=== PATIENT | male | born 1985 | race Caucasian/White ===

== ENCOUNTER 2021-06-02 12:58 | Emergency (ER) | payer BC, SELFPAY ==
--- NOTE | ~2021-06-02 | CT_ITS ---
EXAMINATION: CT abdomen pelvis wo con DATE: 06/02/2021 13:47 INDICATION: Left flank pain. TECHNIQUE: Computed tomography (CT) of the abdomen and pelvis was performed without intravenous contr ast. Automated exposure control and iterative reconstruction technique were employed. The dose-length product was 310.57 mGy-cm. COMPARISON: CT abdomen and pelvis 01/30/2017 FINDINGS: The visualized portions of the lung bases demonstrate mild atelectasis. No pleural effusion . The heart size is normal. No pericardial effusion. There is diffuse hepatic steatosis. The gallblad donita, spleen, pancreas, and adrenal glands are normal. There is a 1 mm stone in right kidney. There is a 1 mm stone in left kidney. There are no dilated loops of bowel. The appendix is normal. There are no pathologically enlarged lymph nodes. There is no free intraperitoneal fluid. There is a benign bon [place] in proximal left femur. There is severe lumbar spondylosis. IMPRESSION: 1. Small bilateral nonobstructing kidney stones. 2. Diffuse hepatic steatosis. Reviewed, dictated and finalized at location [facility]. [employer]
[2021-06-02 13:00] VITALS: BP 140/80; PULSE 74; RESP 16; TEMP 36.6; O2SAT 98
--- NOTE | 2021-06-02 13:23 | PC.NURSE ---
Pt off floor to CT scan
[2021-06-02 13:30] LABS: Add Urine Microscopic? YES; Appearance Urine Clear (Clear); Bilirubin Urine Negative (Negative); Blood Urine Negative (Negative); Color Urine Yellow (Yellow); Glucose Urine UA Negative (Negative); Ketones Urine Negative (Negative); Leukocyte Esterase Ur Negative LEU/UL (Negative); Mucus Urine Rare /lpf; Nitrate Urine Negative (Negative); Protein Urine Negative (Negative); RBC Urine 0-2 /hpf (0-2); Urobilinogen Urine Negative mg/dL (<2.0); WBC Urine 0-3 /hpf
[2021-06-02] MEDS: SODIUM CHLORIDE 0.9% IV 1,000 ML 999 ML IV CONT (13:39)
[2021-06-02] MEDS: TAMSULOSIN HCL 0.4 MG CAPSULE PO (13:40)
[2021-06-02 13:46] LABS: Basophils Percent Auto 0.4 % (0.2-1.2); Eosinophils Absolute Auto 0.1 K/mm3 (0-0.3); Eosinophils Percent Auto 1.8 % (0-4.4); Hematocrit 43.6 % (42.0-52.0); Hemoglobin 14.6 g/dL (14.0-18.0); Immature Granulocyte Absolute 0.01 K/mm3 (0.00-0.031); Immature Granulocyte Percent A 0.1 % (0-0.5); Lymphocytes Absolute Auto 2.92 K/mm3 (0.9-3.2); Lymphocytes Percent Auto 38.4 % (18.3-44.2); Mean Corpuscular HGB Conc 33.5 g/dl (32-36); Mean Corpuscular Hemoglobin 29.3 pg (26-34); Mean Corpuscular Volume 87.6 fl (80-100); Monocytes Absolute Auto 0.7 K/mm3 (0.1-0.6); Monocytes Percent Auto 9.5 % (2.6-8.5); Neutrophils Absolute Auto 3.8 K/mm3 (1.3-6.7); Neutrophils Percent Auto 49.8 % (45.5-73.1); Platelet Count Result 244 k/mm3 (150-375); Red Blood Count 4.98 M/mm3 (4.6-6.20); White Blood Count 7.6 K/mm3 (4.5-10.0)
[2021-06-02 13:56] LABS: Alanine Aminotransferase 71 U/L (4-50); Albumin Level 4.5 g/dL (3.5-5.1); Alkaline Phosphatase 58 U/L (38-126); Anion Gap 9 mmol/L (8-16); Aspartate Amino Transferase 45 U/L (17-59); Bilirubin,Total 0.5 mg/dL (0.2-1.3); Blood Urea Nitrogen 16 mg/dL (9-20); Calcium 8.9 mg/dL (8.4-10.2); Carbon Dioxide 26 mmol/L (22-30); Chloride 106 mmol/L (98-107); Estimated CRCL calculation 99 ml/min; Estimated Glomerular Filt Rate > 60; Glucose 99 mg/dL (65-110); Potassium 4.1 mmol/L (3.4-5.0); Sodium 141 mmol/L (137-145)
--- NOTE | 2021-06-02 14:48 | ED.BACK ---
HPI - Back Pain/Injury General Chief Complaint: Back Pain/Injury Stated Complaint: left flank pain Time Seen by Provider: 06/02/21 13:09 Source: patient Mode of arrival: ambulatory Limitations: no limitations History of Present Illness HPI Narrative: 36 years old white male presents to the ED with left back pain including left flank and left lower back with intermittent radiation to left groin area. For the last 1 month. Patient denies any fever, chills, nausea, vomiting, diarrhea, constipation, urinary symptoms. History of chronic lower back pain. Patient is physically inactive over the last 2 years .currently denying any groin pain, testicular pain or penile pain. Related Data Allergies Allergy/AdvReac Type Severity Reaction Status Date / Time Penicillins Allergy Unknown unknown Verified 06/02/21 13:20 Review of Systems Review of Systems: CONSTITUTIONAL: Denies fever, chills, or sweats. EYES: Denies visual changes, redness, or discharge. ENT: Denies rhinorrhea, congestion, sore throat, or otalgia. CARDIOVASCULAR: Denies chest pain, palpitations, or edema. RESPIRATORY: Denies cough or dyspnea. GASTROINTESTINAL: Denies abdominal pain, nausea, vomiting, or diarrhea. GENITOURINARY: Denies dysuria or hematuria. SKIN: Denies rash or itching. MUSCULOSKELETAL: Denies back pain, joint pain, or myalgia. NEUROLOGIC: Denies headache, numbness, or weakness. PSYCHIATRIC: Denies anxiety or depression. [facility] Family History Family History Mother Patient's mother is in good health Father Patient's father is in good health Social History Social History Smoking status: Never smoker Second hand tobacco smoke exposure: No Alcohol intake: current Exam Narrative: General appearance: Well-developed, well-nourished Skin: Normal color Head: Normocephalic, nontraumatic Eyes: Clear conjunctiva ENT: Oropharynx normal, ears normal, nose normal Neck: Supple, nontender Chest and respiratory: Airway patent, no respiratory distress, no accessory muscle use Heart: Regular rate/rhythm Abdomen: Soft, nontender, no organomegaly, quiet bowel sounds Vascular: Normal peripheral pulses, normal capillary refill. Musculoskeletal: Slight tenderness across lumbar area, no bruises, no swelling, no rash Neurologic: Alert and oriented ?3, CONTENT MANAGER is normal as tested, no gross motor deficit Course Course Emergency Course: Stable Vital Signs Vital signs: Vital Signs Temperature 36.6 C 06/02/21 13:00 Pulse Rate 74 06/02/21 13:00 Respiratory Rate 16 06/02/21 13:00 Blood Pressure 140/80 06/02/21 13:00 Pulse Oximetry 98 06/02/21 13:00 Temperature 36.6 C 06/02/21 13:00 Pulse Rate 74 06/02/21 13:00 Respiratory Rate 16 06/02/21 13:00 Blood Pressure 140/80 06/02/21 13:00 Pulse Oximetry 98 06/02/21 13:00 MDM - Back Pain/Injury Lab Data Result diagrams: 06/02/21 13:22 06/02/21 13:22 Labs: Lab Results 06/02/21 06/02/21 06/02/21 Range/Units 13:22 13:22 13:22 WBC 7.6 (4.5-10.0) K/mm3 RBC 4.98 (4.6-6.20) M/mm3 Hgb 14.6 (14.0-18.0) g/dL Hct 43.6 (42.0-52.0) % MCV 87.6 (80-100) fl MCH 29.3 (26-34) pg MCHC 33.5 (32-36) g/dl RDW 13.0 (11.5-14.5) % Plt Count 244 (150-375) k/mm3 MPV 10.0 (7.4-10.4) fl Immature Gran % (Auto) 0.1 (0-0.5) % Neut % (Auto) 49.8 (45.5-73.1) % Lymph % (Auto) 38.4 (18.3-44.2) % [place] % (Auto) 9.5 H (2.6-8.5) % Eos % (Auto) 1.8 (0-4.4) % Baso % (Auto) 0.4 (0.2-1.2) % Lymph # (Auto) 2.92 (0.9-3.2) K/mm
[2021-06-02 15:19] VITALS: BP 136/90; PULSE 74; RESP 16; O2SAT 99
== END 2021-06-02 15:19 | disposition home or self-care (01) ==
PROVIDERS: Emergency Provider Emergency Medicine; PCP Internal Medicine
DX: M62.830 Muscle spasm of back (principal); S39.012S Strain of muscle, fascia and tendon of lower back, sequela; K76.0 Fatty (change of) liver, not elsewhere classified; N20.0 Calculus of kidney; X58.XXXS Exposure to other specified factors, sequela
CPT/HCPCS: 36415; 74176; 80053; 81001; 85025; 96360; 99284; A9270; J7030

== ENCOUNTER 2022-10-25 20:15 | Emergency (ER) | payer BC, SELFPAY ==
--- NOTE | ~2022-10-25 | CT_ITS ---
EXAMINATION: CT abdomen pelvis w con DATE: 10/26/2022 00:52 INDICATION: Left lower quadrant pain, left flank pain, left low back pain. TECHNIQUE: Computed tomography (CT) of the abdomen and pelvis was performed with 100 CC Omnipaque 350 intravenous contrast. Automated exposure control and iterative reconstruction technique were employe d. Exam dose: 814.25 mGy-cm total exam DLP. COMPARISON: 06/02/2021 CT abdomen pelvis FINDINGS: Minimal discoid atelectasis or scarring in the lower lung zones. Normal heart size. No nell cardial or pleural effusion. Diffuse hepatic steatosis. No hepatic space-occupying mass lesion is evident. The gallbladder is pres ent. No bile duct or pancreatic duct dilatation. No pancreatic mass lesion or calcification. Normal s plenic size. Normal morphology of the adrenal glands. Pinpoint nonobstructing mid right renal calculus and approximately 3 mm nonobstructing upper pole rig ht renal calculus. Mildly prominent right and moderately prominent left renal pelves. No ureteral eulalio culus or hydroureteronephrosis is noted on either side. No renal space occupying mass lesion is detec ayush. Normal caliber of the abdominal aorta. No intraperitoneal or retroperitoneal or pelvic mass lesion or adenopathy or ascites. The urinary bladder and prostate gland are unremarkable. Normal appendix. No bowel obstruction, bowel wall thickening, pneumatosis or intraperitoneal free air . Multilevel degenerative disc disease of the thoracic and lumbar spine with associated mild retrolisth esis at L2-3, L3-4, L4-5 and L5-S1. No suspicious osteolytic or osteoblastic lesions are detected. IMPRESSION: Minimal nonobstructive right nephrolithiasis No ureteral calculi or hydroureteronephrosis on either side Normal appendix Reviewed, dictated and finalized at [facility]. Reviewed, dictated and finalized at location [facility].
[2022-10-25 20:42] VITALS: BP 139/86; PULSE 87; RESP 18; TEMP 36.6; O2SAT 95
[2022-10-25 23:25] VITALS: PULSE 74; RESP 22; TEMP 36.6; O2SAT 97
[2022-10-25 23:45] LABS: Appearance Urine Clear (Clear); Bilirubin Urine Negative (Negative); Blood Urine Negative (Negative); Color Urine Yellow (Yellow); Glucose Urine UA Negative (Negative); Ketones Urine Negative (Negative); Leukocyte Esterase Ur Negative LEU/UL (Negative); Nitrate Urine Negative (Negative); Protein Urine Negative (Negative); Specific Grav Ur 1.021 (1.001-1.035)
[2022-10-25 23:47] LABS: Add Urine Microscopic? NO; Basophils Percent Auto 0.2 % (0.2-1.2); Eosinophils Absolute Auto 0.1 K/mm3 (0-0.3); Eosinophils Percent Auto 0.5 % (0-4.4); Hematocrit 45.1 % (42.0-52.0); Immature Granulocyte Absolute 0.04 K/mm3 (0.00-0.031); Immature Granulocyte Percent A 0.3 % (0-0.5); Lymphocytes Absolute Auto 3.47 K/mm3 (0.9-3.2); Lymphocytes Percent Auto 27.5 % (18.3-44.2); Mean Corpuscular HGB Conc 33.3 g/dl (32-36); Mean Corpuscular Hemoglobin 29.1 pg (26-34); Mean Corpuscular Volume 87.4 fl (80-100); Mean Platelet Volume 9.9 fl (7.4-10.4); Monocytes Absolute Auto 1.2 K/mm3 (0.1-0.6); Monocytes Percent Auto 9.2 % (2.6-8.5); Neutrophils Absolute Auto 7.8 K/mm3 (1.3-6.7); Neutrophils Percent Auto 62.3 % (45.5-73.1); Platelet Count Result 244 k/mm3 (150-375); Red Blood Count 5.16 M/mm3 (4.6-6.20); White Blood Count 12.6 K/mm3 (4.5-10.0)
[2022-10-25 23:54] VITALS: PULSE 98; RESP 21
[2022-10-26] VITALS (12 sets, daily range): BP systolic 120–129; BP diastolic 78–84; PULSE 66–88; RESP 16–25; TEMP 36.6; O2SAT 90–99
[2022-10-26] LABS: Alanine Aminotransferase 70 U/L (6-50); Albumin Level 4.9 g/dL (3.5-5.1); Alkaline Phosphatase 67 U/L (38-126); Anion Gap 12 mmol/L (8-16); Aspartate Amino Transferase 35 U/L (17-59); Bilirubin,Total 0.5 mg/dL (0.2-1.3); Blood Urea Nitrogen 11 mg/dL (9-20); Calcium 9.4 mg/dL (8.4-10.2); Carbon Dioxide 28 mmol/L (22-30); Chloride 101 mmol/L (98-107); Estimated CRCL calculation 89 ml/min; Estimated Glomerular Filt Rate > 60; Glucose 100 mg/dL (65-110); Lipase 59 U/L (23-300); Potassium 3.9 mmol/L (3.4-5.0); Sodium 141 mmol/L (137-145)
--- NOTE | 2022-10-26 00:31 | ED.ABDPAIN ---
HPI - Abdominal Pain General Chief Complaint: Abdominal Pain <MIRELLA Young Last Filed: 10/26/22 03:43> Stated Complaint: L lower back and abdominal pain <MIRELLA Young Last Filed: 10/26/22 03:43> Time Seen by Provider: 10/25/22 23:38 <MIRELLA Young Last Filed: 10/26/22 03:43> Source: patient <MIRELLA Young Last Filed: 10/26/22 03:43> Mode of arrival: ambulatory <MIRELLA Young Last Filed: 10/26/22 03:43> Limitations: no limitations <MIRELLA Young Last Filed: 10/26/22 03:43> History of Present Illness HPI narrative: Patient is a 37-year-old male who presents ED with report of left flank and abdominal pain. Patient reports having pain in his left lower back/left flank region for the last week and a half. Denies any known injury. He has tried Tylenol and ibuprofen at home without much improvement. The pain began radiating around to his left lower abdomen 2 days ago. At times, pain is very severe, worse with walking. Patient notes Hx of kidney stones but states that pain was more severe. Denies any N/V/D, constipation, fevers, dysuria, hematuria. Patient also reports he woke up this morning with a gout flare in his right first toe. History of this. Feels similar. <MIRELLA Young Last Filed: 10/26/22 03:43> Related Data Allergies/Adverse Reactions: Allergies Allergy/AdvReac Type Severity Reaction Status Date / Time Penicillins Allergy Unknown unknown Verified 05/13/22 08:36 <MIRELLA Young Last Filed: 10/26/22 03:43> Review of Systems Review of Systems: CONSTITUTIONAL: Denies fever, chills, or sweats. CARDIOVASCULAR: Denies chest pain. RESPIRATORY: Denies dyspnea. GASTROINTESTINAL: See HPI. GENITOURINARY: Denies dysuria or hematuria. MUSCULOSKELETAL: See HPI. NEUROLOGIC: Denies headache, numbness, or weakness. <Jade Cheung PA-C - Last Filed: 10/26/22 03:43> All systems reviewed & are unremarkable except as noted in HPI and below <Jade Cheung PA-C - Last Filed: 10/26/22 03:43> [facility] Family History Family History: Family History (Reviewed 05/13/22 @ 08:36 by Kerrie Grubbs [facility]) Mother Patient's mother is in good health Father Patient's father is in good health <Jade Cheung PA-C - Last Filed: 10/26/22 03:43> Social History Social History: Social History Smoking status: Never smoker Second hand tobacco smoke exposure: No Alcohol intake: current Substance use: unknown Lack of Transportation: No Lack of Food: Never True Current Housing: I Have Housing Concerned About Future Housing: No Difficulty Paying Gas/Electric Bills: No Difficulty Paying for Meds: No Currently Unemployed: No Education: Bachelor's Degree Difficulty w/ Childcare or Family Care: No <Jade Cheung PA-C - Last Filed: 10/26/22 03:43> Exam Narrative: GENERAL: Well appearing, obese with BMI of 32.3, non-toxic, in no acute distress. HEAD: Normocephalic, atraumatic. NECK: Supple. No adenopathy, no masses. RESPIRATORY: Airway patent, respirations nonlabored. Clear to auscultation bilaterally, no rales, rhonchi, wheezing. CARDIOVASCULAR: Regular rate and rhythm without murmurs, rubs, or gallops. Peripheral pulses 2+ and equal bilaterally. ABDOMINAL: Soft, mild tenderness along left lower/lateral abdomen, nondistended, no hepatosplenomegaly. Normoactive BS. No significant CVA tenderness to percussion. MUSCULOSKELETAL: Moves all extremities. Strength/ROM intact without gross deformities. Tenderness throughout left lumbosacral region. No midline spinal tenderness. Mild tenderness palpation to right first MTP joint, consistent with reported history of gout. Mild swelling noted to joint. No erythema or warmth. SKIN: Warm, dry, normal color. No rashes. N
[2022-10-26] MEDS: SODIUM CHLORIDE 0.9% IV 1,000 ML 999 ML IV CONT (00:36)
[2022-10-26] MEDS: MORPHINE SULFATE (*CRX) 4 MG/ML INJ IV PUSH (02:10)
[2022-10-26] MEDS: ONDANSETRON INJ 4 MG/2 ML VIAL IV PUSH (02:12)
== END 2022-10-26 05:05 | disposition home or self-care (01) ==
PROVIDERS: Emergency Provider Emergency Medicine; PCP Internal Medicine
DX: M10.9 Gout, unspecified (principal); N20.0 Calculus of kidney
CPT/HCPCS: 36415; 74177; 80053; 81003; 83690; 85025; 96361; 96374; 96375; 99284; J2270; J2405; J7030; Q9967

== ENCOUNTER 2022-11-03 15:24 | Outpatient (CLI) | payer BC, SELFPAY ==
[2022-11-03 15:58] LABS: Alanine Aminotransferase 65 U/L (6-50); Albumin Level 4.6 g/dL (3.5-5.1); Alkaline Phosphatase 61 U/L (38-126); Anion Gap 9 mmol/L (8-16); Aspartate Amino Transferase 43 U/L (17-59); Bilirubin,Total 0.3 mg/dL (0.2-1.3); Blood Urea Nitrogen 21 mg/dL (9-20); Calcium 9.3 mg/dL (8.4-10.2); Carbon Dioxide 28 mmol/L (22-30); Chloride 100 mmol/L (98-107); Estimated Glomerular Filt Rate > 60; Glucose 114 mg/dL (65-110); Potassium 4.2 mmol/L (3.4-5.0); Sodium 137 mmol/L (137-145); Uric Acid 7.6 mg/dL (3.5-8.5)
== END 2022-11-03 15:25 | disposition home or self-care (01) ==
PROVIDERS: PCP Internal Medicine; Visit Provider Podiatrist Foot & Ankle Surgery
DX: M10.9 Gout, unspecified (principal)
CPT/HCPCS: 36415; 80053; 84550

== ENCOUNTER 2023-02-02 08:35 | Outpatient (CLI) | payer BC, SELFPAY ==
[2023-02-02 09:15] LABS: Alanine Aminotransferase 82 U/L (6-50); Albumin Level 4.6 g/dL (3.5-5.1); Alkaline Phosphatase 53 U/L (38-126); Anion Gap 6 mmol/L (8-16); Aspartate Amino Transferase 41 U/L (17-59); Bilirubin,Total 0.6 mg/dL (0.2-1.3); Blood Urea Nitrogen 13 mg/dL (9-20); Carbon Dioxide 28 mmol/L (22-30); Chloride 104 mmol/L (98-107); Estimated Glomerular Filt Rate > 60; Glucose 107 mg/dL (65-110); Sodium 138 mmol/L (137-145); Uric Acid 5.9 mg/dL (3.5-8.5)
== END 2023-02-02 08:36 | disposition home or self-care (01) ==
PROVIDERS: PCP Internal Medicine; Visit Provider Podiatrist Foot & Ankle Surgery
DX: M10.079 Idiopathic gout, unspecified ankle and foot (principal)
CPT/HCPCS: 36415; 80053; 84550

== ENCOUNTER 2023-06-24 16:08 | Outpatient (CLI) | payer BC, SELFPAY ==
[2023-06-24 18:14] LABS: Alanine Aminotransferase 83 U/L (6-50); Albumin Level 4.7 g/dL (3.5-5.1); Alkaline Phosphatase 55 U/L (38-126); Anion Gap 9 mmol/L (4-12); Aspartate Amino Transferase 50 U/L (17-59); Bilirubin,Total 0.8 mg/dL (0.2-1.3); Blood Urea Nitrogen 14 mg/dL (9-20); Carbon Dioxide 27 mmol/L (22-30); Chloride 101 mmol/L (98-107); Estimated Glomerular Filt Rate > 60; Glucose 98 mg/dL (65-110); Potassium 4.1 mmol/L (3.4-5.0); Sodium 137 mmol/L (137-145); Uric Acid 7.8 mg/dL (3.5-8.5)
== END 2023-06-24 16:09 | disposition home or self-care (01) ==
LOC: ANHLAB 16:09
PROVIDERS: PCP Internal Medicine; Visit Provider Podiatrist Foot & Ankle Surgery
DX: B35.1 Tinea unguium (principal)
CPT/HCPCS: 36415; 80053; 84550

== ENCOUNTER 2023-10-28 08:34 | Outpatient (CLI) | payer BC, SELFPAY ==
[2023-10-28 09:24] LABS: Alanine Aminotransferase 73 U/L (6-50); Albumin Level 4.8 g/dL (3.5-5.1); Alkaline Phosphatase 60 U/L (38-126); Anion Gap 10 mmol/L (4-12); Aspartate Amino Transferase 41 U/L (17-59); Bilirubin,Total 0.4 mg/dL (0.2-1.3); Blood Urea Nitrogen 13 mg/dL (9-20); Calcium 8.8 mg/dL (8.4-10.2); Carbon Dioxide 30 mmol/L (22-30); Chloride 100 mmol/L (98-107); Estimated Glomerular Filt Rate > 60; Glucose 98 mg/dL (65-110); Potassium 4.4 mmol/L (3.4-5.0); Sodium 140 mmol/L (137-145)
== END 2023-10-28 08:35 | disposition home or self-care (01) ==
PROVIDERS: PCP Internal Medicine; Visit Provider Podiatrist Foot & Ankle Surgery
DX: M10.079 Idiopathic gout, unspecified ankle and foot (principal)
CPT/HCPCS: 36415; 80053; 84550

== ENCOUNTER 2024-11-15 17:01 | Outpatient (CLI) | payer BC, SELFPAY ==
[2024-11-15 17:54] LABS: Alanine Aminotransferase 57 U/L (6-50); Albumin Level 4.6 g/dL (3.5-5.1); Alkaline Phosphatase 65 U/L (38-126); Anion Gap 9 mmol/L (4-12); Aspartate Amino Transferase 46 U/L (17-59); Bilirubin,Total 0.5 mg/dL (0.2-1.3); Blood Urea Nitrogen 16 mg/dL (9-20); Calcium 9.1 mg/dL (8.4-10.2); Carbon Dioxide 25 mmol/L (22-30); Chloride 104 mmol/L (98-107); Estimated Glomerular Filt Rate > 60; Glucose 99 mg/dL (65-110); Potassium 4.0 mmol/L (3.4-5.0); Sodium 138 mmol/L (137-145); Total Protein 8.2 g/dL (6.3-8.2); Uric Acid 4.6 mg/dL (3.5-8.5)
== END 2024-11-15 17:02 | disposition home or self-care (01) ==
LOC: ANHLAB 17:05
PROVIDERS: PCP Nurse Practitioner Family; Visit Provider Podiatrist Foot & Ankle Surgery
DX: M10.079 Idiopathic gout, unspecified ankle and foot (principal)
CPT/HCPCS: 36415; 80053; 84550